=== PATIENT | female | born 1975 ===

== ENCOUNTER 2024-04-23 06:38 | Day surgery (SDC) | payer BC, SELFPAY ==
[2024-04-23] VITALS (8 sets, daily range): BP systolic 95–137; BP diastolic 45–83; BMI 30.3
[2024-04-23] MEDS: TYLENOL 1000 MG PO (12:58)
[2024-04-23] MEDS: NORMOSOL-R 1000 IV (13:11)
[2024-04-23] MEDS: SUBLIMAZE 25 MCG IV (15:57)
== END 2024-04-23 16:47 | disposition home or self-care (01) ==
LOC: SDS 06:38
PROVIDERS: ATTENDING PHYSICIAN Orthopaedic Surgery Hand Surgery
DX: M25.832 Other specified joint disorders, left wrist (principal); M65.88 Other synovitis and tenosynovitis, other site
CPT/HCPCS: 25390; 29846; 29845; C1713